=== PATIENT | male | born 1960 | race African-American/Black ===

== ENCOUNTER 2017-01-11 02:10 | Emergency (ER) | payer OTHER ==
[~2017-01-11] VITALS: Ht 167.6 cm; Wt 111.0 kg
[~2017-01-11 02:10] MED LIST: 1-ME1LIQ PO; BACL10TA PO; ESCI10TA PO; GABA300C3 PO; HYDR-2768 PO; MILKSUS5 PO; NORC7.5T PO; Z.0.WALKERFRONT
[2017-01-11 02:11] VITALS: BP 191/112; PULSE 73; RESP 18; TEMP 97.9; O2SAT 98
[2017-01-11] MEDS ORDERED: HYDR25TA5 PO (02:23)
[2017-01-11] MEDS ORDERED: CYCL1TAB29 PO (02:23)
[2017-01-11] MEDS ORDERED: HYDR-3580 PO (02:23)
[2017-01-11 02:27] VITALS: BP 221/98; PULSE 70; RESP 25; O2SAT 100
[2017-01-11] MEDS ORDERED: ONDANSETRON HCL 4 MG/2 ML VIAL IVP ONE (03:15)
[2017-01-11] MEDS ORDERED: SODIUM CHLORIDE 0.9% FLUSH 5 ML FLUSH IVF PRN (03:15)
[2017-01-11] MEDS ORDERED: MORPHINE SULFATE 8 MG/ML INJ IV PUSH ONE (03:15)
[2017-01-11 03:37] LABS: AUTOMATED NEUTROPHIL # 4.9 TH/MM3 (1.8-7.7); BASOPHIL % 0.5 % (0.0-2.0); EOSINOPHIL # 0.2 TH/MM3 (0-0.4); EOSINOPHIL % 2.4 % (0.0-4.0); HEMATOCRIT 45.4 % (39.0-51.0); HEMO FLAGS DIFF FINAL; LYMPH % 35.3 % (9.0-44.0); LYMPHOCYTE # 3.3 TH/MM3 (1.0-4.8); MEAN CELL VOLUME 88.2 FL (80.0-100.0); MEAN CORPUSCULAR HEMOGLOBIN 29.6 PG (27.0-34.0); MEAN CORPUSCULAR HGB CONC 33.6 % (32.0-36.0); MONO % 10.1 % (0.0-8.0); NEUT % 51.7 % (16.0-70.0); PLATELET COUNT 258 TH/MM3 (150-450); RED BLOOD COUNT 5.15 MIL/MM3 (4.50-5.90); RED CELL DISTRIBUTION WIDTH 13.4 % (11.6-17.2); WHITE BLOOD COUNT 9.5 TH/MM3 (4.0-11.0)
[2017-01-11 04:10] LABS: ALKALINE PHOSPHATASE 63 U/L (45-117); ALT (GPT) 43 U/L (12-78); TOTAL BILIRUBIN ADULT 0.7 MG/DL (0.2-1.0)
[2017-01-11 04:20] LABS: ANION GAP 6 MEQ/L (5-15); AST (GOT) 44 U/L (15-37); BICARBONATE 30.7 MEQ/L (21.0-32.0); BLOOD UREA NITROGEN 7 MG/DL (7-18); CHLORIDE 103 MEQ/L (98-107); GLOMERULAR FILTRATION RATE 86 ML/MIN (>89); SODIUM (NA) 140 MEQ/L (136-145)
[2017-01-11 04:30] LABS: POTASSIUM 5.3 MEQ/L (3.5-5.1)
[2017-01-11 06:15] VITALS: BP 140/71; PULSE 59; RESP 18; TEMP 98.4; O2SAT 100
--- NOTE | 2017-01-11 06:15 | PD ---
HPI Chief Complaint: GI Complaint Time Seen by Provider: 03:04 Travel History International Travel<30 days: No Contact w/Intl Traveler<30days: No Traveled to known affect area: No History of Present Illness HPI 56-year-old male arrives complaining of right abdomen pain. It started is been severe. It comes and goes. It radiates to the back. He's had nausea and yellow emesis. He reports it started while he was asleep. He's had no diarrhea. No fever. Patient has history of hypertension and has been compliant with hydrochlorothiazide. Pain is worse with palpation. 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) Cancer: No Cardiovascular Problems: Yes ([place]) High Cholesterol: Yes Chemotherapy: No Chest Pain: Yes Congestive Heart Failure: No COPD: No Cerebrovascular Accident: No Diabetes: No Diminished Hearing: No Endocrine: No Gastrointestinal Disorders: Yes (CHRONIC CONSTIPATION, PANCREATITIS) GERD: Yes Genitourinary: Yes Hepatitis: No Hiatal Hernia: No Hypertension: Yes Immune Disorder: No Kidney Stones: Yes (THIS ADMISSION) Musculoskeletal: Yes Neurologic: Yes Psychiatric: Yes Reproductive: No Respiratory: Yes Migraines: No Myocardial Infarction: Yes (2003) Pancreatitis: Yes (RESOLVED AFTER STOPPED DRINKING 1997) Radiation Therapy: No Renal Failure: No Seizures: No Sickle Cell Disease: No Sleep Apnea: No Thyroid Disease: No Ulcer: Yes Tetanus Vaccination: < 5 Years Influenza Vaccination: No Past Surgical History Abdominal Surgery: No AICD: No Arteriovenous Shunt: No Body Medical Devices: INGUINAL HERNIA MESH Cardiac Surgery: No Ear Surgery: No Endocrine Surgery: No Eye Surgery: No Genitourinary Surgery: Yes (LEFT INGUINAL HERNIA REPAIR, PILONIDAL CYST REMOVAL ) Gynecologic Surgery: No Insulin Pump: No Joint Replacement: No Oral Surgery: No Pacemaker: No Thoracic Surgery: No Other Surgery: Yes (laminectomy ) Social History Alcohol Use: Yes (LAST INTAKE 2002/USE TO DRINK WEEKENDS/STARTED AGE 3) Tobacco Use: No (QUIT 2002 USE TO SMOKE 1 PPD/STARTED AGE 3) Substance Use: No Allergies-Medications (Allergen,Severity, Reaction): Coded Allergies: Nubain (Verified Allergy, Severe, SWELLING ABD PAIN AND VOMITING,TONGUE SWELLING, 01/11/17) Shrimp (Verified Allergy, Severe, VOMITING, 01/11/17) Stadol (Verified Allergy, Severe, VOMITING, 01/11/17) Talwin (Verified Allergy, Severe, ABD PAIN AND VOMITING, 01/11/17) Toradol (Verified Allergy, Severe, STOMACH PAIN., 01/11/17) Reported Meds & Prescriptions Reported Meds & Active Scripts Active Zofran Odt (Ondansetron Odt) 4 Mg Tab 4 Mg SL Q8HR PRN Flomax (Tamsulosin HCl) 0.4 Mg Cap 0.4 Mg PO HS Oxycodone (Oxycodone HCl) 5 Mg Tab 5 Mg PO Q8H PRN Reported Hydrochlorothiazide 25 Mg Tab 25 Mg PO DAILY Hydrocodone-Acetaminophen 7.5-325 mg Tab 1-2 Tab PO Q6 PRN Flexeril (Cyclobenzaprine HCl) 10 Mg Tab 10 Mg PO BID Review of Systems Except as stated in HPI: all other systems reviewed are Neg General / Constitutional: No: Fever Gastrointestinal: Positive: Nausea, Vomiting, Abdominal Pain, No: Diarrhea Physical Exam Narrative GENERAL: 56-year-old male pleasant well-nourished well-developed SKIN: Warm and dry. HEAD: Atraumatic. Normocephalic. EYES: Pupils equal and round. No scleral icterus. No injection or drainage. ENT: No nasal bleeding or discharge. Mucous membranes pink and moist. NECK: Trachea midline. No JVD. CARDIOVASCULAR: Regular rate and rhythm. No murmur appreciated. RESPIRATORY: No accessory muscle use. Clear to auscultation. Breath sounds equal bilaterally. GASTROINTESTINAL: Tenderness to palpation right upper quadrant. Soft otherwise. MUSCULOSKELETAL: No obvious deformities. No clubbing. No cyanosis. No edema. NEUROLOGICAL: Awake and alert. No obvious cranial nerve deficits. Motor grossly within normal limits. Normal speech. PSYCHIATRIC: Appropriate mood and affect; insight and judgment normal. Data Data Last Documented VS Vital Signs Date Time Temp Pulse Resp B/P Pulse Ox O2 Delivery O2 Flow Rate FiO2 01/11/17 06:15 100 Room Air 01/11/17 06:15 98.4 59 18 140/71 Vital signs reviewed and the repeat blood pressure is 140/71 6:15 AM Orders Complete Blood Count With Diff (01/11/17 03:12) Comprehensive Metabolic Panel (01/11/17 03:12) Lipase (01/11/17 03:12) Iv Access Insert/Monitor (01/11/17 03:12) Ecg Monitoring (01/11/17 03:12) Oximetry (01/11/17 03:12) Ondansetron Inj (Zofran Inj) (01/11/17 03:15) Sodium Chloride 0.9% Flush (Ns Flush) (01/11/17 03:15) Morphine Inj (Morphine Inj) (01/11/17 03:15) Ct Abd/Pel W/O Iv Contrast (01/11/17 ) Urinalysis - C+S If Indicated (01/11/17 06:44) Labs Laboratory Tests Test 01/11/17 01/11/17 03:00 06:30 White Blood Count 9.5 TH/MM3 Red Blood Count 5.15 MIL/MM3 Hemoglobin 15.3 GM/DL Hematocrit 45.4 % Mean Corpuscular Volume 88.2 FL Mean Corpuscular Hemoglobin 29.6 PG Mean Corpuscular Hemoglobin 33.6 % Concent Red Cell Distribution Width 13.4 % Platelet Count 258 TH/MM3 Mean Platelet Volume 8.7 FL Neutrophils (%) (Auto) 51.7 % Lymphocytes (%) (Auto) 35.3 % Monocytes (%) (Auto) 10.1 % Eosinophils (%) (Auto) 2.4 % Basophils (%) (Auto) 0.5 % Neutrophils # (Auto) 4.9 TH/MM3 Lymphocytes # (Auto) 3.3 TH/MM3 Monocytes # (Auto) 1.0 TH/MM3 Eosinophils # (Auto) 0.2 TH/MM3 Basophils # (Auto) 0.0 TH/MM3 CBC Comment DIFF FINAL Differential Comment Sodium Level 140 MEQ/L Potassium Level 5.3 MEQ/L Chloride Level 103 MEQ/L Carbon Dioxide Level 30.7 MEQ/L Anion Gap 6 MEQ/L Blood Urea Nitrogen 7 MG/DL Creatinine 1.07 MG/DL Estimat Glomerular Filtration 86 ML/MIN Rate Random Glucose 104 MG/DL Calcium Level 8.4 MG/DL Total Bilirubin 0.7 MG/DL Aspartate Amino Transf 44 U/L (AST/SGOT) Alanine Aminotransferase 43 U/L (ALT/SGPT) Alkaline Phosphatase 63 U/L Total Protein 7.6 GM/DL Albumin 3.7 GM/DL Lipase 171 U/L Urine Color LIGHT-YELLOW Urine Turbidity CLEAR Urine pH 7.0 Urine Specific [place] 1.005 Urine Protein NEG mg/dL Urine Glucose (UA) NEG mg/dL Urine Ketones NEG mg/dL Urine Occult Blood NEG Urine Nitrite NEG Urine Bilirubin NEG Urine Urobilinogen LESS THAN 2.0 MG/DL Urine Leukocyte Esterase NEG Urine RBC 1 /hpf Urine WBC LESS THAN 1 /hpf Urine Squamous Epithelial <1 /hpf Cells Microscopic Urinalysis Comment CULT NOT INDICATED MDM Medical Decision Making Medical Screen Exam Complete: Yes Emergency Medical Condition: Yes Medical Record Reviewed: Yes Differential Diagnosis Constipation, Gastritis, Acute Cholecystitis, Biliary Colic, Pancreatitis, CROW , Hepatitis, Bowel Obstruction, Cystitis, Mesenteric Ischemia, AAA, Appendicitis , Renal Stone/Hydronephrosis, GERD, perforated viscous Narrative Course CBC & BMP Diagram 01/11/17 03:00 LFTs and lipase normal UA: No UTI Last Impressions Abdomen/Pelvis CT 01/11/17 0000 Signed Impressions: Service Date/Time: Friday, January 11, 2017 05:35 - CONCLUSION: 1. 4 mm calculus in the distal right ureter with right-sided obstructive uropathy mild hydronephrosis. Multiple additional nonobstructing calculi in the right kidney. Jos Doss MD Urinalysis shows no hematuria Oxycodone Zofran Tamiflu. Return precautions discussed. Follow up with urology. Diagnosis Primary Impression: Nausea & vomiting Qualified Code: R11.2 - Nausea and vomiting, intractability of vomiting not specified, unspecified vomiting type Additional Impressions: Hydronephrosis Qualified Code: N13.30 - Hydronephrosis, unspecified hydronephrosis type Ureteric calculus Referrals: Cody Bello MD 2 days Additional Instructions: You have a choice when it comes to health care, and we are glad that you chose [facility]. Hopefully, we have met your expectations on today's visit. You are welcome to return to [facility] at any time, as we are committed to meeting the health care needs of our community. Med/Other Pt SpecificInfo: Prescription(s) given Scripts Ondansetron Odt (Zofran Odt)4 Mg Tab4 Mg SL Q8HR PRN (Nausea/Vomiting) #6 TAB Ref 0 Prov:Hao aVllecillo MD 01/11/17 Tamsulosin (Flomax)0.4 Mg Cap0.4 Mg PO HS #4 CAP Ref 0 Prov:Hao Vallecillo MD 01/11/17 Oxycodone 5 Mg Tab5 Mg PO Q8H PRN (PAIN SCALE 6 TO 10) #20 TAB Ref 0 Prov:Hao Vallecillo MD 01/11/17 Disposition: 01 DISCHARGE HOME Condition: Stable Hao Vallecillo MD Jan 11, 2017 06:15
--- NOTE | 2017-01-11 06:32 | RADRPT ---
EXAM DATE/TIME: 01/11/2017 05:35 [facility] COMPARISON: No previous studies available for comparison. INDICATIONS : Abdominal pain. ORAL CONTRAST: No oral contrast ingested. RADIATION DOSE: 11.95 CTDIvol (mGy) MEDICAL HISTORY : Pancreatitis. Hypertension. Hernia, inguinal. SURGICAL HISTORY : Inguinal hernia repair. ENCOUNTER: Initial ACUITY: 1 day PAIN SCALE: 5/10 LOCATION: abdomen TECHNIQUE: Volumetric scanning of the abdomen and pelvis was performed. Using automated exposure control and ad justment of the mA and/or kV according to patient size, radiation dose was kept as low as reasonably achievable to obtain optimal diagnostic quality images. FINDINGS: There is a mild right-sided obstructive uropathy with minimal dilatation of the right renal collectin g system. There is dilatation of the right ureter into the pelvis where there is a 4 mm calculus in t he distal right ureter above the bladder. No bladder calculi. Numerous additional nonobstructing calc mark remain in the right kidney ranging in size from 1-4 mm. No left-sided renal calculi or obstructiv e uropathy. Tiny bilateral renal cysts. No acute findings in the liver, spleen, adrenals or pancreas. No calcified gallstones. Mild fatty gael er. No free fluid. No bowel obstruction. No adenopathy. No acute bony abnormalities. CONCLUSION: 1. 4 mm calculus in the distal right ureter with right-sided obstructive uropathy mild hydronephrosis . Multiple additional nonobstructing calculi in the right kidney. Jos Doss MD on January 11, 2017 at 6:25 Board Certified Radiologist. This report was verified electronically.
[2017-01-11 07:06] LABS: BLOOD, URINE NEG (NEG); GLUCOSE,URINE NEG (NEG); KETONE, URINE NEG (NEG); NITRITE,URINE NEG (NEG); SQUAMOUS EPITHELIAL CELL URINE <1 /hpf (0-5); URINE COLOR LIGHT-YELLOW (YELLW/STRAW)
[2017-01-11 07:12] LABS: COMMENT (UR) CULT NOT INDICATED; CULTURE IF INDICATED CULT NOT INDICATED
[2017-01-11] MEDS ORDERED: TAMS5CAP PO (07:21)
[2017-01-11] MEDS ORDERED: ZOFR4TAB3 SL (07:21)
[2017-01-11] MEDS ORDERED: OXYC-392 PO (07:21)
== END 2017-01-11 07:55 | disposition home or self-care (01) ==
LOC: NEPC 02:10
DX: N13.2 Hydronephrosis with renal and ureteral calculous obstruction (principal); R11.2 Nausea with vomiting, unspecified
CPT/HCPCS: 74176; 80053; 81001; 83690; 85025; 96374; 96375; 99284; J2270; J2405

== ENCOUNTER 2017-01-17 12:43 | Emergency (ER) | payer OTHER ==
[~2017-01-17] VITALS: Ht 167.6 cm; Wt 110.0 kg
[~2017-01-17 12:43] MED LIST changes: -1-ME1LIQ PO; -BACL10TA PO; +CYCL1TAB29 PO; -ESCI10TA PO; -GABA300C3 PO; -HYDR-2768 PO; +HYDR-3580 PO; +HYDR25TA5 PO; -MILKSUS5 PO; -NORC7.5T PO; +OXYC-392 PO; +TAMS5CAP PO; -Z.0.WALKERFRONT; +ZOFR4TAB3 SL
[2017-01-17 12:45] VITALS: BP 178/106; PULSE 100; RESP 15; TEMP 98; O2SAT 95
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
[2017-01-17] MEDS ORDERED: METHOCARBAMOL 500 MG TAB PO ONE (13:45)
[2017-01-17] MEDS ORDERED: IBUPROFEN 800 MG TAB PO ONE (13:45)
[2017-01-17 14:59] VITALS: BP 156/94; PULSE 76; RESP 18; O2SAT 97
--- NOTE | 2017-01-17 15:07 | RADRPT ---
EXAM DATE/TIME: 01/17/2017 14:08 [facility] COMPARISON: No previous studies available for comparison. INDICATIONS : Lower back pain; history of laminectomy. RADIATION DOSE: 35.86 CTDIvol (mGy) MEDICAL HISTORY : Cardiovascular disease. Hypertension. Pancreatitis. SURGICAL HISTORY : None. ENCOUNTER: Initial ACUITY: 1 day PAIN SCALE: 4/10 LOCATION: Lower back TECHNIQUE: Volumetric scanning of the lumbar spine was performed. Multiplanar reconstructions in the sagittal, coronal and oblique axial planes were performed. Using automated exposure control and adjustment of the mA and/or kV according to patient size, radiation dose was kept as low as reasonably achievable t o obtain optimal diagnostic quality images. FINDINGS: Sagittal and coronal reconstructions show mild degenerative disease at L3-4 with some loss of disc he ight. Otherwise, vertebral body and disc heights are maintained throughout. There is no fracture or l isthesis. Spinal canal appears to be adequate throughout. Also noted are nonobstructing subcentimeter stones in the right renal collecting system. There is a 3 mm calculus in the right ureter in the lev el of the deep pelvis which does not appear to result in significant hydroureter or hydronephrosis. T here may also be a lipoma the filum terminalis. Detailed axial images as follows: T12-L1: The thecal sac has a normal diameter. No evidence of disc bulge or protrusion. The neural foramina are patent bilaterally. L1-L2: The thecal sac has a normal diameter. No evidence of disc bulge or protrusion. The neural foramina are patent bilaterally. L2-L3: The thecal sac has a normal diameter. No evidence of disc bulge or protrusion. The neural foramina are patent bilaterally. L3-L4: The thecal sac has a normal diameter. No evidence of disc bulge or protrusion. The neural foramina are patent bilaterally. L4-L5: The thecal sac has a normal diameter. No evidence of disc bulge or protrusion. The neural foramina are patent bilaterally. L5-S1: The thecal sac has a normal diameter. No evidence of disc bulge or protrusion. The neural foramina are patent bilaterally. CONCLUSION: 1. Minimal degenerative disease at L3-4 similar loss of disc height. Vertebral body and disc heights are otherwise maintained without fracture. 2. Multiple nonobstructing subcentimeter calculi in the right renal collecting system. 3 mm calculus in the distal right ureter. 3. 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 Deuce Jo MD on January 17, 2017 at 14:55 Board Certified Radiologist. This report was verified electronically.
[2017-01-17] MEDS ORDERED: ROBA500T PO ×2 (15:42→15:50)
== END 2017-01-17 15:54 | disposition home or self-care (01) ==
LOC: NETRI 12:43
DX: M54.5 Low back pain (principal); N20.1 Calculus of ureter; N20.0 Calculus of kidney; I10 Essential (primary) hypertension; E78.00 Pure hypercholesterolemia, unspecified; Z79.01 Long term (current) use of anticoagulants; Z87.39 Personal history of other diseases of the musculoskeletal system and connective tissue; Z86.59 Personal history of other mental and behavioral disorders; Z86.79 Personal history of other diseases of the circulatory system; Z87.19 Personal history of other diseases of the digestive system; Z87.448 Personal history of other diseases of urinary system; Z86.69 Personal history of other diseases of the nervous system and sense organs; Z87.891 Personal history of nicotine dependence
CPT/HCPCS: 72131

== ENCOUNTER 2017-11-03 16:52 | Observation (INO) | payer OTHER ==
[~2017-11-03 16:52] MED LIST changes: +CYCL10TA PO; -CYCL1TAB29 PO; +ROBA500T PO
[2017-11-03 16:53] VITALS: BP 160/126; PULSE 124; RESP 22; TEMP 100.4; O2SAT 97
[2017-11-03] MEDS ORDERED: IOHEXOL 350 MG/ML 10 ML VIAL (for RAD DIAG) IVCONTRAST ONE (16:53)
[2017-11-03] MEDS ORDERED: SODIUM CHLOR 0.9% 1000 ML INJ 1,000 ML IV SCH (17:40)
--- NOTE | 2017-11-03 17:44 | PD ---
HPI Chief Complaint: Cold / Flu Symptoms Time Seen by Provider: 17:39 Travel History International Travel<30 days: No Contact w/Intl Traveler<30days: No Traveled to known affect area: No History of Present Illness HPI 57-year-old male here for evaluation of generalized malaise, general body aches , cough, shortness of breath. Symptoms started yesterday. He is having subjective fevers and chills. Cough is nonproductive. He also complains of a sore throat. No abdominal pain, nausea, or vomiting. 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) Cancer: No Cardiovascular Problems: Yes (NE) High Cholesterol: Yes Chemotherapy: No Chest Pain: Yes Congestive Heart Failure: No COPD: No Cerebrovascular Accident: No Diabetes: No Diminished Hearing: No Endocrine: No Gastrointestinal Disorders: Yes (CHRONIC CONSTIPATION, PANCREATITIS) GERD: Yes Genitourinary: Yes Headaches: No Hepatitis: No Hiatal Hernia: No Heparin Induced Thrombocytopen: No Hypertension: Yes Immune Disorder: No Implanted Vascular Access Dvce: No Kidney Stones: Yes (THIS ADMISSION) Musculoskeletal: Yes Neurologic: Yes Psychiatric: Yes Reproductive: No Respiratory: Yes Migraines: No Myocardial Infarction: Yes (2003) Pancreatitis: Yes (RESOLVED AFTER STOPPED DRINKING 1997) Radiation Therapy: No Renal Failure: No Seizures: No Sickle Cell Disease: No Sleep Apnea: No Thyroid Disease: No Ulcer: Yes Past Surgical History Abdominal Surgery: No AICD: No Arteriovenous Shunt: No Body Medical Devices: INGUINAL HERNIA MESH Cardiac Surgery: No Ear Surgery: No Endocrine Surgery: No Eye Surgery: No Genitourinary Surgery: Yes (LEFT INGUINAL HERNIA REPAIR, PILONIDAL CYST REMOVAL ) Gynecologic Surgery: No Insulin Pump: No Joint Replacement: No Neurologic Surgery: No Oral Surgery: No Pacemaker: No Thoracic Surgery: No Other Surgery: Yes (laminectomy ) Social History Alcohol Use: Yes (LAST INTAKE 2002/USE TO DRINK WEEKENDS/STARTED AGE 3) Tobacco Use: No (QUIT 2002 USE TO SMOKE 1 PPD/STARTED AGE 3) Substance Use: No Allergies-Medications (Allergen,Severity, Reaction): Coded Allergies: butorphanol (Unverified Allergy, Severe, VOMITING, 06/10/17) ketorolac (Unverified Allergy, Severe, STOMACH PAIN., 06/10/17) nalbuphine (Unverified Allergy, Severe, SWELLING ABD PAIN AND VOMITING, TONGUE SWELLING, 06/10/17) pentazocine (Unverified Allergy, Severe, ABD PAIN AND VOMITING, 06/10/17) shrimp (Unverified Allergy, Severe, VOMITING, 06/10/17) Reported Meds & Prescriptions Reported Meds & Active Scripts Active Robaxin (Methocarbamol) 500 Mg Tab 500 Mg PO QID PRN Zofran Odt (Ondansetron Odt) 4 Mg Tab 4 Mg SL Q8HR PRN Flomax (Tamsulosin HCl) 0.4 Mg Cap 0.4 Mg PO HS Oxycodone (Oxycodone HCl) 5 Mg Tab 5 Mg PO Q8H PRN Reported Hydrochlorothiazide 25 Mg Tab 25 Mg PO DAILY Hydrocodone-Acetaminophen 7.5-325 mg Tab 1-2 Tab PO Q6 PRN Flexeril (Cyclobenzaprine HCl) 10 Mg Tab 10 Mg PO BID Review of Systems Except as stated in HPI: all other systems reviewed are Neg Physical Exam Narrative GENERAL: Well-developed, well-nourished, no apparent distress. SKIN: Focused skin assessment warm/dry. No rashes. HEAD: Atraumatic. Normocephalic. EYES: Pupils equal and round. No scleral icterus. No injection or drainage. ENT: Mucous membranes pink and moist. Normal pharynx. No drooling or stridor. NECK: Trachea midline. No JVD. No nuchal rigidity. CARDIOVASCULAR: Regular rate and rhythm. RESPIRATORY: No accessory muscle use. Clear to auscultation. Breath sounds equal bilaterally. GASTROINTESTINAL: Abdomen soft, non-tender, nondistended. MUSCULOSKELETAL: No obvious deformities. No clubbing. No cyanosis. No edema. NEUROLOGICAL: Awake and alert. No obvious cranial nerve deficits. Motor grossly within normal limits. Normal speech. PSYCHIATRIC: Appropriate mood and affect; insight and judgment normal. Data Data Last Documented VS Vital Signs Date Time Temp Pulse Resp B/P (MAP) Pulse Ox O2 Delivery O2 Flow Rate FiO2 11/03/17 19:12 113 16 150/70 (96) 96 Room Air 11/03/17 16:53 100.4 Orders Orders Complete Blood Count With Diff (11/03/17 17:20) Basic Metabolic Panel (Bmp) (11/03/17 17:20) Chest, Pa & Lat (11/03/17 17:20) Group A Rapid Strep Screen (11/03/17 17:20) Influenzae A/B Antigen (11/03/17 17:20) Iv Access Insert/Monitor (11/03/17 17:40) Ecg Monitoring (11/03/17 17:40) Oximetry (11/03/17 17:40) Sodium Chlor 0.9% 1000 Ml Inj (Ns 1000 M (11/03/17 17:40) Sodium Chloride 0.9% Flush (Ns Flush) (11/03/17 17:45) Acetaminophen (Tylenol) (11/03/17 17:45) Guaifen-Cod 200-20 Mg/10ml Liq (Robituss (11/03/17 19:15) Strep Culture (Group A) (11/03/17 19:05) Ct Abd/Pel W Iv Contrast(Rout) (11/03/17 ) Ct Pulmonary Angiogram (11/03/17 ) Hepatic Functional Panel (11/03/17 20:02) Lipase (11/03/17 20:02) Sodium Chlor 0.9% 1000 Ml Inj (Ns 1000 M (11/03/17 20:15) Iohexol 350 Inj (Omnipaque 350 Inj) (11/03/17 16:53) Guaifen-Cod 200-20 Mg/10ml Liq (Robituss (11/03/17 21:45) Labs Laboratory Tests Test 11/03/17 19:05 White Blood Count 8.7 TH/MM3 Red Blood Count 4.69 MIL/MM3 Hemoglobin 14.3 GM/DL Hematocrit 41.9 % Mean Corpuscular Volume 89.4 FL Mean Corpuscular Hemoglobin 30.6 PG Mean Corpuscular Hemoglobin Concent 34.2 % Red Cell Distribution Width 13.8 % Platelet Count 224 TH/MM3 Mean Platelet Volume 8.2 FL Neutrophils (%) (Auto) 77.9 % Lymphocytes (%) (Auto) 9.8 % Monocytes (%) (Auto) 9.8 % Eosinophils (%) (Auto) 2.1 % Basophils (%) (Auto) 0.4 % Neutrophils # (Auto) 6.8 TH/MM3 Lymphocytes # (Auto) 0.9 TH/MM3 Monocytes # (Auto) 0.9 TH/MM3 Eosinophils # (Auto) 0.2 TH/MM3 Basophils # (Auto) 0.0 TH/MM3 CBC Comment DIFF FINAL Differential Comment Blood Urea Nitrogen 10 MG/DL Creatinine 1.17 MG/DL Random Glucose 97 MG/DL Calcium Level 8.1 MG/DL Sodium Level 138 MEQ/L Potassium Level 3.8 MEQ/L Chloride Level 105 MEQ/L Carbon Dioxide Level 28.4 MEQ/L Anion Gap 5 MEQ/L Estimat Glomerular Filtration Rate 77 ML/MIN Total Bilirubin 0.7 MG/DL Direct Bilirubin 0.2 MG/DL Indirect Bilirubin 0.5 MG/DL Aspartate Amino Transf (AST/SGOT) 28 U/L Alanine Aminotransferase (ALT/SGPT) 41 U/L Alkaline Phosphatase 61 U/L Total Protein 6.8 GM/DL Albumin 3.4 GM/DL Lipase 146 U/L [facility] Medical Decision Making Medical Screen Exam Complete: Yes Emergency Medical Condition: Yes Differential Diagnosis Influenza, URI, pharyngitis, strep pharyngitis, pneumonia, bronchitis Narrative Course Initial vital signs show heart rate 124, blood pressure 160/126, pulse ox 97% on room air, tympanic temp of 100.4F. CBC is essentially unremarkable except for slight neutrophilia with 77.9% neutrophils. BMP is unremarkable. Influenza is negative. Strep is negative. Chest x-ray shows no acute disease. The patient was given a liter of normal saline IV and oral Tylenol and his heart rate has improved to 115 bpm. He now tells me that he has abdominal pain and points to his mid and epigastric area where he has pain. There is mild tenderness without peritoneal signs. CT abdomen pelvis will be ordered as well as a CT pulmonary angiogram. CT pulmonary angiogram: CONCLUSION: Normal examination. CT abdomen pelvis: CONCLUSION: Normal examination except for few benign renal cysts. A few right sided renal calcifications. No evidence of hydronephrosis or obstruction. Patient remains tachycardic with a heart rate of 115, sinus, despite receiving 2 L of normal saline IV. He was made aware of all findings. He has had a persistent cough, however it is been nonproductive. He is requesting another dose of Robitussin. Given persistent tachycardia, patient be admitted for overnight observation. Case discussed with [facility] hospitalist Dr. Ackerman who will admit the patient to his service. The patient is amenable with this plan. Diagnosis Primary Impression: URI (upper respiratory infection) Qualified Codes: J06.9 - Acute upper respiratory infection, unspecified Additional Impression: Sinus tachycardia Admitting Information Admitting Physician Requests: Observation Sin Loya MD Nov 03, 2017 17:44
[2017-11-03] MEDS ORDERED: ACETAMINOPHEN 325 MG TAB PO ONE (17:45)
[2017-11-03] MEDS ORDERED: SODIUM CHLORIDE 0.9% FLUSH 10 ML FLUSH IV FLUSH PRN (17:45)
--- NOTE | 2017-11-03 17:54 | RADRPT ---
EXAM DATE/TIME: 11/03/2017 17:48 [facility] COMPARISON: No previous studies available for comparison. INDICATIONS : Short of breath and body aches. MEDICAL HISTORY : None. SURGICAL HISTORY : None. ENCOUNTER: Initial ACUITY: 2 days PAIN SCORE: 10/10 LOCATION: Bilateral chest FINDINGS: PA and lateral views of the chest demonstrate the lungs to be symmetrically aerated without evidence of mass, infiltrate or effusion. The cardiomediastinal contours are unremarkable. Osseous structure s are intact. CONCLUSION: 1. No acute cardiopulmonary disease. Oscar Edward MD on November 03, 2017 at 17:52 Board Certified Radiologist. This report was verified electronically.
[2017-11-03 18:11] VITALS: O2SAT 98
[2017-11-03 19:12] VITALS: BP 150/70; PULSE 113; RESP 16; O2SAT 96
[2017-11-03] MEDS ORDERED: guaiFENesin/CODEINE SYRUP 200 MG/20 MG/10 ML CUP PO ONE ×2 (19:15→21:45)
[2017-11-03 19:54] LABS: AUTOMATED NEUTROPHIL # 6.8 TH/MM3 (1.8-7.7); BASOPHIL % 0.4 % (0.0-2.0); EOSINOPHIL # 0.2 TH/MM3 (0-0.4); EOSINOPHIL % 2.1 % (0.0-4.0); HEMATOCRIT 41.9 % (39.0-51.0); HEMOGLOBIN 14.3 GM/DL (13.0-17.0); LYMPH % 9.8 % (9.0-44.0); LYMPHOCYTE # 0.9 TH/MM3 (1.0-4.8); MEAN CELL VOLUME 89.4 FL (80.0-100.0); MEAN CORPUSCULAR HEMOGLOBIN 30.6 PG (27.0-34.0); MEAN CORPUSCULAR HGB CONC 34.2 % (32.0-36.0); MEAN PLATELET VOLUME 8.2 FL (7.0-11.0); MONO % 9.8 % (0.0-8.0); MONOCYTE # 0.9 TH/MM3 (0-0.9); NEUT % 77.9 % (16.0-70.0); PLATELET COUNT 224 TH/MM3 (150-450); RED BLOOD COUNT 4.69 MIL/MM3 (4.50-5.90); RED CELL DISTRIBUTION WIDTH 13.8 % (11.6-17.2); WHITE BLOOD COUNT 8.7 TH/MM3 (4.0-11.0)
[2017-11-03 19:59] LABS: BICARBONATE 28.4 MEQ/L (21.0-32.0); CALCIUM 8.1 MG/DL (8.5-10.1); CREATININE 1.17 MG/DL (0.60-1.30)
[2017-11-03] MEDS ORDERED: SODIUM CHLOR 0.9% 1000 ML INJ 1,000 ML IV ONE (20:15)
[2017-11-03 20:27] LABS: ALBUMIN 3.4 GM/DL (3.4-5.0); DIRECT BILIRUBIN ADULT 0.2 MG/DL (0.0-0.2)
[2017-11-03 20:30] LABS: INDIRECT BILIRUBIN 0.5 MG/DL (0.0-0.8); TOTAL BILIRUBIN ADULT 0.7 MG/DL (0.2-1.0); TOTAL PROTEIN 6.8 GM/DL (6.4-8.2)
--- NOTE | 2017-11-03 21:19 | RADRPT ---
EXAM DATE/TIME: 11/03/2017 20:57 [facility] COMPARISON: No previous studies available for comparison. INDICATIONS : Body aches, cough, sore throat and chest congestion. IV CONTRAST: 98 cc Omnipaque 350 (iohexol) IV ; Cumulative dose for multiple exams. RADIATION DOSE: 23.32 CTDIvol (mGy) MEDICAL HISTORY : Cardiovascular disease. Hypertension. Pancreatitis.COPD Renal stones SURGICAL HISTORY : Inguinal hernia repair. Discectomy, lumbar. ENCOUNTER: Initial ACUITY: 1 day PAIN SCALE: 5/10 LOCATION: chest TECHNIQUE: Volumetric scanning of the chest was performed using a pulmonary embolism protocol MIP images were re constructed. Using automated exposure control and adjustment of the mA and/or kV according to patien t size, radiation dose was kept as low as reasonably achievable to obtain optimal diagnostic quality images. DICOM format image data is available electronically for review and comparison. Follow-up recommendations for detected pulmonary nodules are based at a minimum on nodule size and pa tient risk factors according to Fleischner Society Guidelines. FINDINGS: PULMONARY ARTERIES: No filling defects are seen in the pulmonary arteries through the segmental level. LUNGS: There is no consolidation or pneumothorax . No concerning pulmonary nodule is visualized. PLEURAE: There is no pleural thickening or pleural effusion. MEDIASTINUM: There is good visualization of the great vessels of the middle mediastinum. No evidence of mediastin al or hilar adenopathy/mass. MUSCULOSKELETAL: Within normal limits for patient age. MISCELLANEOUS: The visualized upper abdominal organs demonstrate no acute abnormality. CONCLUSION: Normal examination. Anibal Link MD on November 03, 2017 at 21:16 Board Certified Radiologist. This report was verified electronically.
--- NOTE | 2017-11-03 21:27 | RADRPT ---
EXAM DATE/TIME: 11/03/2017 20:57 [facility] COMPARISON: CT ABDOMEN & PELVIS W CONTRAST, July 25, 2016, 18:15. INDICATIONS : Body aches, cough, sore throat and chest congestion. IV CONTRAST: 98 cc Omnipaque 350 (iohexol) IV ORAL CONTRAST: No oral contrast ingested. RADIATION DOSE: 22.55 CTDIvol (mGy) ; Patient body habitus MEDICAL HISTORY : Cardiovascular disease. Hypertension. Pancreatitis.COPD Renal stones SURGICAL HISTORY : Inguinal hernia repair. Discectomy, lumbar. ENCOUNTER: Initial ACUITY: 1 day PAIN SCALE: 5/10 LOCATION: abdomen TECHNIQUE: Volumetric scanning of the abdomen and pelvis was performed. Using automated exposure control and ad justment of the mA and/or kV according to patient size, radiation dose was kept as low as reasonably achievable to obtain optimal diagnostic quality images. DICOM format image data is available electro nically for review and comparison. FINDINGS: LOWER LUNGS: The visualized lower lungs are clear. LIVER: Homogeneously lower density without lesion. There is no dilation of the biliary tree. No calcified gallstones. SPLEEN: Normal size without lesion. PANCREAS: Within normal limits. KIDNEYS: Normal in size and shape. There is no hydronephrosis. There numerous cysts are present and a few rickie al calcifications ADRENAL GLANDS: Within normal limits. VASCULAR: There is no aortic aneurysm. BOWEL/MESENTERY: The stomach, small bowel, and colon demonstrate no acute abnormality. There is no free intraperitone al air or fluid. ABDOMINAL WALL: Within normal limits. RETROPERITONEUM: There is no lymphadenopathy. BLADDER: No wall thickening or mass. REPRODUCTIVE: Within normal limits. INGUINAL: There is no lymphadenopathy or hernia. MUSCULOSKELETAL: Within normal limits for patient age. CONCLUSION: Normal examination except for few benign renal cysts. A few right sided renal calcifications. No evid ence of hydronephrosis or obstruction. Anibal Link MD on November 03, 2017 at 21:22 Board Certified Radiologist. This report was verified electronically.
[2017-11-03 22:18] VITALS: BP 167/89; PULSE 112; RESP 20; O2SAT 99
[2017-11-03] MEDS ORDERED: ONDANSETRON HCL 4 MG/2 ML VIAL IV PUSH PRN (22:30)
[2017-11-03] MEDS ORDERED: methylPREDNISolone SOD SUCC 125 MG/2 ML VIAL IV PUSH ONE (22:30)
[2017-11-03] MEDS ORDERED: ACETAMINOPHEN 325 MG TAB PO PRN (22:30)
[2017-11-03] MEDS: RESP: ALBUTEROL 2.5 MG/IPRATROPIUM 0.5 MG NEB (SCH) NEB ×2 (22:30→23:20)
[2017-11-03] MEDS ORDERED: CYCLOBENZAPRINE HCL 10 MG TAB PO ONE (22:30)
[2017-11-03] MEDS ORDERED: LACTULOSE SYRUP 20 GM/30 ML CUP PO ONE (22:30)
--- NOTE | 2017-11-03 22:37 | HHI.HP ---
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 Says his family members have been sick for weeks with couigh/congestion as are many of his friends. Also some family members have n/v symptoms. Yesterday he began with fever and cough/wheezing/congestion sx's. Also had frontal headache but no sinus drainage. did describe some sore throat but no n/v. In fact c/o constipation and even msk cp/abd pain with cough. In ED was noted to have sinus tach and given several liters of IVF. Pt had CTA chest and CT a/p all negative for any concerning abnormality. I was asked to admit the pt due to ongoing tachycardia and his overall ill appearance. Review of Systems Other cough/congestion sore throat headache constipation Past Family Social History Past Medical History remote pancreatitis related to etoh chronic lumbar spine pain hx spinal stenosis. L4,5,S1 decompressive laminectomy hx of right arthroscopic surgery htn leg swelling nephrolithiasis noncompliance with medications. Reported Medications norvasc.pt takes maybe 10mg once weekly flexeril..10mg says he takes usually 2 at a time 2 or 3 times per day. meloxicam 2-4 per day oxycodone 5mg on every other day prn lasix 20mg bid...uses when gets legs swelling. Allergies: Coded Allergies: butorphanol (Unverified Allergy, Severe, VOMITING, 06/10/17) ketorolac (Unverified Allergy, Severe, STOMACH PAIN., 06/10/17) nalbuphine (Unverified Allergy, Severe, SWELLING ABD PAIN AND VOMITING, TONGUE SWELLING, 06/10/17) pentazocine (Unverified Allergy, Severe, ABD PAIN AND VOMITING, 06/10/17) shrimp (Unverified Allergy, Severe, VOMITING, 06/10/17) Family History [place] Social History hx etoh abuse. quit 10-15 yrs ago hx tob use 2ppd x about 50yrs. quit 6 yrs ago. Physical Exam Vital Signs lying in bed appears sob neck supple heart reg/tachy lung slava exp wheeze abd s/nt ext no pitting edema Vital Signs Date Time Temp Pulse Resp B/P (MAP) Pulse Ox O2 Delivery O2 Flow Rate FiO2 11/03/17 22:18 112 20 167/89 (115) 99 Room Air 11/03/17 19:12 113 16 150/70 (96) 96 Room Air 11/03/17 18:11 98 11/03/17 16:53 100.4 124 22 160/126 (137) 97 Laboratory Laboratory Tests Test 11/03/17 19:05 White Blood Count 8.7 Red Blood Count 4.69 Hemoglobin 14.3 Hematocrit 41.9 Mean Corpuscular Volume 89.4 Mean Corpuscular Hemoglobin 30.6 Mean Corpuscular Hemoglobin Concent 34.2 Red Cell Distribution Width 13.8 Platelet Count 224 Mean Platelet Volume 8.2 Neutrophils (%) (Auto) 77.9 Lymphocytes (%) (Auto) 9.8 Monocytes (%) (Auto) 9.8 Eosinophils (%) (Auto) 2.1 Basophils (%) (Auto) 0.4 Neutrophils # (Auto) 6.8 Lymphocytes # (Auto) 0.9 Monocytes # (Auto) 0.9 Eosinophils # (Auto) 0.2 Basophils # (Auto) 0.0 CBC Comment DIFF FINAL Differential Comment Blood Urea Nitrogen 10 Creatinine 1.17 Random Glucose 97 Calcium Level 8.1 Sodium Level 138 Potassium Level 3.8 Chloride Level 105 Carbon Dioxide Level 28.4 Anion Gap 5 Estimat Glomerular Filtration Rate 77 Total Bilirubin 0.7 Direct Bilirubin 0.2 Indirect Bilirubin 0.5 Aspartate Amino Transf (AST/SGOT) 28 Alanine Aminotransferase (ALT/SGPT) 41 Alkaline Phosphatase 61 Total Protein 6.8 Albumin 3.4 Lipase 146 Date/Time Source Procedure Growth Status 11/03/17 19:05 Throat Group A Streptococcus Screen Pending Received Result Diagram: 11/03/17190411/03/171904 Caprini VTE Risk Assessment Caprini VTE Risk Assessment: No/Low Risk (score <= 1) Caprini Risk Assessment Model Point Value = 1 Point Value = 2 Point Value = 3 Point Value = 5 Age 41-60 Minor surgery BMI > 25 kg/m2 Swollen legs Varicose veins or History of unexplained or recurrent spontaneous Oral contraceptives or hormone replacement Sepsis (< 1 month) Serious lung disease, including pneumonia (< 1 month) Abnormal pulmonary function Acute myocardial infarction Congestive heart failure (< 1 month) History of inflammatory bowel disease Medical patient at bed rest Age 61-74 Arthroscopic surgery Major open surgery (> 45 min) Laparoscopic surgery (> 45 min) Malignancy Confined to bed (> 72 hours) Immobilizing plaster cast Central venous access Age >= 75 History of VTE Family history of VTE Factor V Leiden Prothrombin [id number] Lupus anticoagulant Anticardiolipin antibodies Elevated serum homocysteine Heparin-induced thrombocytopenia Other congenital or acquired thrombophilia Stroke (< 1 month) Elective arthroplasty Hip, pelvis, or leg fracture Acute spinal cord injury (< 1 month) Prophylaxis Regimen Total Risk Factor Score Risk Level Prophylaxis Regimen 0-1 Low Early ambulation 2 Moderate Order ONE of the following: *Sequential Compression Device (SCD) *Heparin 5000 units SQ BID 3-4 Higher Order ONE of the following medications: *Heparin 5000 units SQ TID *Enoxaparin/Lovenox 40 mg SQ daily (WT < 150 kg, CrCl > 30 mL/min) *Enoxaparin/Lovenox 30 mg SQ daily (WT < 150 kg, CrCl > 10-29 mL/min) *Enoxaparin/Lovenox 30 mg SQ BID (WT < 150 kg, CrCl > 30 mL/min) AND/OR *Sequential Compression Device (SCD) 5 or more Highest Order ONE of the following medications: *Heparin 5000 units SQ TID (Preferred with Epidurals) *Enoxaparin/Lovenox 40 mg SQ daily (WT < 150 kg, CrCl > 30 mL/min) *Enoxaparin/Lovenox 30 mg SQ daily (WT < 150 kg, CrCl > 10-29 mL/min) *Enoxaparin/Lovenox 30 mg SQ BID (WT < 150 kg, CrCl > 30 mL/min) AND *Sequential Compression Device (SCD) Assessment and Plan Problem List: (1) Respiratory distress ICD Codes: R06.03 - Acute respiratory distress Status: Acute Plan: 1.acute respiratory illness. appears to be infectious and could be viral or atypical bacterial bronchitis. pt with multiple friends/family members with similar sx's 2. chronic back pain. s/p L-S laminectomy for Spinal stenosis 3. hx htn and peripheral edema...noncompliant with medications plan nebs/steroids/abx overnight and reevaluate in AM given IVF per ED telemetry/echo monitor his bp and adjust meds as needed dvt prophylaxis PT eval in AM Hector Ackerman MD Nov 03, 2017 22:36
[2017-11-03] MEDS ORDERED: cloNIDine HCL 0.1 MG TAB PO PRN (22:45)
[2017-11-03 22:50] VITALS: TEMP 98.6
[2017-11-03 23:48] VITALS: BP 160/81; PULSE 118; RESP 18; TEMP 100.9; O2SAT 93
[2017-11-03] MEDS: LACTULOSE SYRUP 20 GM/30 ML CUP PO PRN (23:58)
[2017-11-04] VITALS (11 sets, daily range): BP systolic 120–138; BP diastolic 63–77; PULSE 102–121; RESP 18–20; TEMP 97.9–98.6; O2SAT 94–100
[2017-11-04] MEDS ORDERED: AZITHROMYCIN INJ 500 MG in SODIUM CHLOR 0.9% 250 ML INJ 250 ML IV SCH ×2
[2017-11-04] MEDS: RESP: ALBUTEROL 2.5 MG/IPRATROPIUM 0.5 MG NEB (SCH) NEB ×5 (03:14→20:03)
[2017-11-04] MEDS: CYCLOBENZAPRINE HCL 10 MG TAB PO SCH ×3 (06:15→22:12)
--- NOTE | 2017-11-04 08:25 | HHI.PR ---
Subjective Remarks Patient sitting up on edge of bed reports feeling, "a little better." Continues to have nonproductive cough with associated muscular pain SOB has improved Objective Vitals Vital Signs Date Time Temp Pulse Resp B/P (MAP) Pulse Ox O2 Delivery O2 Flow Rate FiO2 11/04/17 08:09 97.9 116 20 138/77 (97) 100 11/04/17 03:33 18 11/04/17 03:31 98.2 121 18 130/69 (89) 96 11/04/17 03:30 115 11/04/17 00:02 117 11/03/17 23:48 100.9 118 18 160/81 (107) 93 11/03/17 22:51 11/03/17 22:50 98.6 11/03/17 22:18 112 20 167/89 (115) 99 Room Air 11/03/17 19:12 113 16 150/70 (96) 96 Room Air 11/03/17 18:11 98 11/03/17 16:53 100.4 124 22 160/126 (137) 97 Result Diagram: 11/03/17 1905 11/03/17 190 Other Results Laboratory Tests Test 11/03/17 19:05 White Blood Count 8.7 TH/MM3 Red Blood Count 4.69 MIL/MM3 Hemoglobin 14.3 GM/DL Hematocrit 41.9 % Mean Corpuscular Volume 89.4 FL Mean Corpuscular Hemoglobin 30.6 PG Mean Corpuscular Hemoglobin Concent 34.2 % Red Cell Distribution Width 13.8 % Platelet Count 224 TH/MM3 Mean Platelet Volume 8.2 FL Neutrophils (%) (Auto) 77.9 % Lymphocytes (%) (Auto) 9.8 % Monocytes (%) (Auto) 9.8 % Eosinophils (%) (Auto) 2.1 % Basophils (%) (Auto) 0.4 % Neutrophils # (Auto) 6.8 TH/MM3 Lymphocytes # (Auto) 0.9 TH/MM3 Monocytes # (Auto) 0.9 TH/MM3 Eosinophils # (Auto) 0.2 TH/MM3 Basophils # (Auto) 0.0 TH/MM3 CBC Comment DIFF FINAL Differential Comment Blood Urea Nitrogen 10 MG/DL Creatinine 1.17 MG/DL Random Glucose 97 MG/DL Calcium Level 8.1 MG/DL Sodium Level 138 MEQ/L Potassium Level 3.8 MEQ/L Chloride Level 105 MEQ/L Carbon Dioxide Level 28.4 MEQ/L Anion Gap 5 MEQ/L Estimat Glomerular Filtration Rate 77 ML/MIN Total Bilirubin 0.7 MG/DL Direct Bilirubin 0.2 MG/DL Indirect Bilirubin 0.5 MG/DL Aspartate Amino Transf (AST/SGOT) 28 U/L Alanine Aminotransferase (ALT/SGPT) 41 U/L Alkaline Phosphatase 61 U/L B-Type Natriuretic Peptide 8 PG/ML Total Protein 6.8 GM/DL Albumin 3.4 GM/DL Lipase 146 U/L Imaging Last Impressions Chest X-Ray 11/03/17 1720 Signed Impressions: Service Date/Time: Friday, November 03, 2017 17:48 - CONCLUSION: 1. No acute cardiopulmonary disease. Oscar Edward MD CT Angiography 11/03/17 0000 Signed Impressions: Service Date/Time: Friday, November 03, 2017 20:57 - CONCLUSION: Normal examination. Anibal Link MD Abdomen/Pelvis CT 11/03/17 0000 Signed Impressions: Service Date/Time: Friday, November 03, 2017 20:57 - CONCLUSION: Normal examination except for few benign renal cysts. A few right sided renal calcifications. No evidence of hydronephrosis or obstruction. Anibal Link MD Objective Remarks GENERAL: This is a well-nourished, well-developed patient, in no apparent distress. CARDIOVASCULAR: Regular rate and rhythm RESPIRATORY: diminished through out with scatter expiratory wheezing GASTROINTESTINAL: Abdomen soft, non-tender, nondistended. Normal active bowel sounds MUSCULOSKELETAL: Extremities without clubbing, cyanosis, or edema. NEURO: Alert & Oriented x4 to person, place, time, situation. Moves all ext x4 A/P Problem List: (1) Respiratory distress ICD Codes: R06.03 - Acute respiratory distress Status: Acute Plan: 1.acute respiratory illness. appears to be infectious and could be viral or atypical bacterial bronchitis. pt with multiple friends/family members with similar sx's 2. chronic back pain. s/p L-S laminectomy for Spinal stenosis 3. hx htn and peripheral edema...noncompliant with medications plan continue nebs/steroids/abx abx not yet given awaiting BC given IVF per ED telemetry echo pending monitor his bp and adjust meds as needed dvt prophylaxis PT eval pending Assessment and Plan Patient examined. Assessment and plan formulated with Pema Aquino PA-C. I agree with the above. improved sob. still with ant chest pain with coughing. cont abx. f/u cx's cont steroid/nebs f/u echo. hopefully d/c tomorrow Pema Aquino Nov 04, 2017 08:25 Hector Ackerman MD Nov 04, 2017 14:57
[2017-11-04] MEDS ORDERED: methylPREDNISolone SOD SUCC 125 MG/2 ML VIAL IV PUSH SCH (09:00)
[2017-11-04 09:36] LABS: PHOSPHORUS 1.2 MG/DL (2.5-4.9)
[2017-11-04 09:59] LABS: BICARBONATE 22.8 MEQ/L (21.0-32.0); CALCIUM 8.1 MG/DL (8.5-10.1); CREATININE 1.24 MG/DL (0.60-1.30); MAGNESIUM 1.8 MG/DL (1.5-2.5)
[2017-11-04] MEDS: guaiFENesin/CODEINE SYRUP 200 MG/20 MG/10 ML CUP PO PRN (10:15)
[2017-11-04] MEDS: AZITHROMYCIN INJ 500 MG in SODIUM CHLOR 0.9% 250 ML INJ 250 ML IV SCH (10:20)
[2017-11-04] MEDS ORDERED: BENZOCAINE-MENTHOL (SUGAR FREE) 15 MG-3.6 MG LOZENGE BUCCAL ONE (13:45)
--- NOTE | 2017-11-04 15:12 | ECHRPT ---
Indication: cardiomyopathy CONCLUSIONS Normal left ventricular size. The left ventricular systolic function is hyperdynamic with an estimated ejection fraction in the ra nge of 65- 70%. Trace mitral valve regurgitation. There is trace tricuspid valve regurgitation. The estimated pulmonary arterial pressure is 33 mmHg. BP: / HR: Rhythm: MEASUREMENTS (Male / Female) Normal Values Technical Quality:Good 2D ECHO LV Diastolic Diameter PLAX 4.2 cm 4.2 - 5.9 / 3.9 - 5.3 cm LV Systolic Diameter PLAX 2.8 cm IVS Diastolic Thickness 1.5 cm 0.6 - 1.0 / 0.6 - 0.9 cm LVPW Diastolic Thickness 1.2 cm 0.6 - 1.0 / 0.6 - 0.9 cm LV Relative Wall Thickness 0.6 RV Internal Dim ED PLAX 2.6 cm M-MODE Aortic Root Diameter MM 3.0 cm LA Systolic Diameter MM 3.5 cm LA Ao Ratio MM 1.2 AV Cusp Separation MM 2.2 cm DOPPLER TR Peak Velocity 240.0 cm/s TR Peak Gradient 23.0 mmHg Right Atrial Pressure 10.0 mmHg Pulmonary Artery Systolic Pressu 33.0 mmHg Right Ventricular Systolic Press 33.0 mmHg FINDINGS LEFT VENTRICLE Normal left ventricular size. The left ventricular systolic function is hyperdynamic with an estimated ejection fraction in the ra nge of 65- 70%. RIGHT VENTRICLE Normal right ventricular size and systolic function. LEFT ATRIUM The left atrial size is normal. RIGHT ATRIUM The right atrial size is normal. ATRIAL SEPTUM Normal atrial septal thickness without atrial level shunting by limited color doppler interrogation. AORTA The aortic root and proximal ascending aorta are normal in size on limited imaging. MITRAL VALVE Structurally normal mitral valve. Trace mitral valve regurgitation. AORTIC VALVE Trileaflet aortic valve. No aortic valve stenosis or regurgitation. TRICUSPID VALVE Structurally normal tricuspid valve. There is trace tricuspid valve regurgitation. The estimated pulmonary arterial pressure is 33 mmHg. PULMONARY VALVE No pulmonary valve regurgitation or stenosis. VESSELS The inferior vena cava is normal in size. PERICARDIUM No pericardial effusion. Afshin Elkins MD, FACC, [facility] [place] (Electronically Signed) Final Date:04 November 2017 15:11
[2017-11-04] MEDS ORDERED: BENZOCAINE-MENTHOL (SUGAR FREE) 15 MG-3.6 MG LOZENGE BUCCAL PRN (16:00)
[2017-11-04] MEDS: methylPREDNISolone SOD SUCC 125 MG/2 ML VIAL IV PUSH SCH (17:15)
[2017-11-04] MEDS: POTASSIUM PHOSPHATE MONOBASIC 500 MG TAB PO SCH ×2 (18:05→22:12)
[2017-11-04] MEDS: LACTULOSE SYRUP 20 GM/30 ML CUP PO PRN (23:21)
[2017-11-05] VITALS: PULSE 106
[2017-11-05] MEDS: RESP: ALBUTEROL 2.5 MG/IPRATROPIUM 0.5 MG NEB (SCH) NEB ×4 (00:40→12:14)
[2017-11-05] MEDS: methylPREDNISolone SOD SUCC 125 MG/2 ML VIAL IV PUSH SCH ×2 (03:12→10:52)
[2017-11-05 03:31] VITALS: BP 126/66; PULSE 102; RESP 18; TEMP 98; O2SAT 96
[2017-11-05 04:45] VITALS: PULSE 92
[2017-11-05] MEDS: CYCLOBENZAPRINE HCL 10 MG TAB PO SCH (06:02)
[2017-11-05 08:00] VITALS: PULSE 106
[2017-11-05 08:05] VITALS: BP 134/78; PULSE 100; RESP 18; TEMP 98.1; O2SAT 95
[2017-11-05] MEDS: AZITHROMYCIN INJ 500 MG in SODIUM CHLOR 0.9% 250 ML INJ 250 ML IV SCH (08:34)
[2017-11-05] MEDS: guaiFENesin/CODEINE SYRUP 200 MG/20 MG/10 ML CUP PO PRN (08:34)
--- NOTE | 2017-11-05 11:56 | HHI.PR ---
Subjective Remarks want to go home feels much better ambulating to bathroom no problem Objective Vitals heart reg lung scattered exp wheezing abd s/nt ext no edema Vital Signs Date Time Temp Pulse Resp B/P (MAP) Pulse Ox O2 Delivery O2 Flow Rate FiO2 11/05/17 08:05 98.1 100 18 134/78 (96) 95 11/05/17 04:45 92 11/05/17 03:31 98.0 102 18 126/66 (86) 96 11/05/17 00:00 106 11/04/17 23:13 98.3 104 18 128/69 (88) 96 11/04/17 20:00 111 11/04/17 19:17 98.2 109 18 126/70 (88) 94 11/04/17 16:04 98.6 106 20 120/63 (82) 96 11/04/17 15:53 109 11/04/17 12:15 102 11/05/17 11/05/17 11/06/17 15:00 23:00 07:00 Intake Total 250 ml Balance 250 ml Intake IV Total 250 ml Result Diagram: 11/03/17 1905 11/04/17 0858 Imaging Last Impressions Chest X-Ray 11/03/17 1720 Signed Impressions: Service Date/Time: Friday, November 03, 2017 17:48 - CONCLUSION: 1. No acute cardiopulmonary disease. Oscar Edward MD CT Angiography 11/03/17 0000 Signed Impressions: Service Date/Time: Friday, November 03, 2017 20:57 - CONCLUSION: Normal examination. Anibal Link MD Abdomen/Pelvis CT 11/03/17 0000 Signed Impressions: Service Date/Time: Friday, November 03, 2017 20:57 - CONCLUSION: Normal examination except for few benign renal cysts. A few right sided renal calcifications. No evidence of hydronephrosis or obstruction. Anibal Link MD A/P Problem List: (1) Respiratory distress ICD Codes: R06.03 - Acute respiratory distress Status: Acute Plan: 1.acute respiratory illness. appears to be infectious and could be viral or atypical bacterial bronchitis. pt with multiple friends/family members with similar sx's 2. chronic back pain. s/p L-S laminectomy for Spinal stenosis 3. hx htn and peripheral edema...noncompliant with medications plan today pt finally coughing up some sputum feels much better. ambulating in ponce to bathroom..he asks to go home. continue nebs/steroids/abx and d/c with neb machine echo no chf f/u pcp d/c home. Hector Ackerman MD Nov 05, 2017 11:56
[2017-11-05] MEDS ORDERED: OXYC-392 PO (11:58)
[2017-11-05] MEDS ORDERED: AMLO10 PO (11:59)
[2017-11-05] MEDS ORDERED: MELO7.5T27 PO ×2 (11:59→12:04)
[2017-11-05] MEDS ORDERED: IPRA0.02 NEB (12:04)
[2017-11-05] MEDS ORDERED: AZIT250T3 PO (12:04)
[2017-11-05] MEDS ORDERED: PRED10 PO (12:04)
[2017-11-05] MEDS ORDERED: guaiFEN-COD 200-20 MG/10ML LIQ PO (12:04)
[2017-11-05] MEDS ORDERED: ALBU0.08 NEB (12:04)
[2017-11-05] MEDS ORDERED: NEBULIZER/ADULT1 KIT (12:06)
--- NOTE | 2017-11-05 12:13 | HHI.DCPOC ---
Discharge Care Plan Diagnosis: (1) Respiratory distress (2) Acute bronchitis Goals to Promote Your Health * To prevent worsening of your condition and complications * To maintain your health at the optimal level Directions to Meet Your Goals Take your medications as prescribed Follow your dietary instruction Follow activity as directed Keep your appointments as scheduled Take your immunizations and boosters as scheduled If your symptoms worsen call your PCP, if no PCP go to Urgent Care Center or Emergency Room Smoking is Dangerous to Your Health. Avoid second hand smoke Call the 24-hour hour crisis hotline for domestic abuse at Hector Ackerman MD Nov 05, 2017 12:13
== END 2017-11-05 14:13 | disposition home or self-care (01) ==
LOC: NEPD 16:52 → NEDA 21:51 → NEPHCDU 22:56
PROVIDERS: ADMIT Hospitalist; ATTEND Hospitalist
DX: R06.03 Acute respiratory distress (principal); J20.9 Acute bronchitis, unspecified; M48.061 Spinal stenosis, lumbar region without neurogenic claudication; G89.29 Other chronic pain; I10 Essential (primary) hypertension; K59.00 Constipation, unspecified; J06.9 Acute upper respiratory infection, unspecified; R10.13 Epigastric pain; R00.0 Tachycardia, unspecified; Q61.02 Congenital multiple renal cysts; E78.00 Pure hypercholesterolemia, unspecified; I25.2 Old myocardial infarction; K21.9 Gastro-esophageal reflux disease without esophagitis; F32.9 Major depressive disorder, single episode, unspecified; M19.90 Unspecified osteoarthritis, unspecified site; Z79.899 Other long term (current) drug therapy; Z87.891 Personal history of nicotine dependence; Z91.14 Patient's other noncompliance with medication regimen
CPT/HCPCS: 71046; 71275; 74177; 80048; 80076; 83690; 83735; 83880; 84100; 85025; 87040; 87081; 87449; 87804; 87880; 93306; 94640; 94664; 96361; 96365; 96375; 96376; 99285; G0378; J0456; J2930; J7030; J7050; Q9967

== ENCOUNTER 2018-03-10 01:33 | Emergency (ER) | payer OTHER ==
[~2018-03-10 01:33] MED LIST changes: +ALBU0.08 NEB; +AMLO10 PO; +AZIT250T3 PO; -HYDR-3580 PO; -HYDR25TA5 PO; +IPRA0.02 NEB; +MELO7.5T27 PO; +NEBULIZER/ADULT1 KIT; +PRED10 PO; -ROBA500T PO; -ZOFR4TAB3 SL; +guaiFEN-COD 200-20 MG/10ML LIQ PO
[2018-03-10 01:36] VITALS: BP 172/99; PULSE 90; RESP 18; TEMP 99.3; O2SAT 98
--- NOTE | 2018-03-10 02:51 | PD ---
HPI Chief Complaint: Injury Time Seen by Provider: 02:15 Travel History International Travel<30 days: No Contact w/Intl Traveler<30days: No Traveled to known affect area: No History of Present Illness HPI 57-year-old black male presents emergency department with complaints of right knee and right ankle pain after a fall 1 week ago last Friday. The patient states that he tripped on his porch falling off onto his right knee. He had twisted his right ankle as well. The patient has been treating himself symptomatically at home. He states that he had to go to a graduation last week and had plane tickets to go out of the [facility]. He opted to go out of [facility] for the graduation and just got back in the town this evening. The patient states that he did have some pain in his lower back into his right leg but he has had back problems in the past. He has noted some increased swelling in his right ankle since the fall. The patient has been ambulatory since the fall. He does report having increasing pain in his foot and ankle now over the last few days. He denies injury to his head, neck or upper back. He states the pain is moderate. He takes muscle relaxers and oxycodone for chronic pain. He has not been seen anywhere for his injury as of yet. No focal weakness or sensory change. No acute bowel or bladder changes. No chest pain or shortness of breath. No palpitations. History Past Medical Histgory Narrative Medical Chronic back pain Hx Cancer: No Hx Chemotherapy: No Hx Radiation Therapy: No Past Surgical History Narrative Surgical Lumbar laminectomy Social History Alcohol Use: Yes (quit 2002) Tobacco Use: No (quit 2002) Allergies-Medications (Allergen,Severity, Reaction): Coded Allergies: butorphanol (Unverified Allergy, Severe, VOMITING, 03/10/18) ketorolac (Unverified Allergy, Severe, STOMACH PAIN., 03/10/18) nalbuphine (Unverified Allergy, Severe, SWELLING ABD PAIN AND VOMITING, TONGUE SWELLING, 03/10/18) pentazocine (Unverified Allergy, Severe, ABD PAIN AND VOMITING, 03/10/18) shrimp (Unverified Allergy, Severe, VOMITING, 03/10/18) Reported Meds & Prescriptions Reported Meds & Active Scripts Active Nebulizer/Adult Mask (N/A) 1 Kit Kit Kit .ROUTE DIRECTED [guaiFEN-COD 200-20 MG/10ML LIQ] 10 ML Syrp 10 Ml PO Q4H PRN 7 Days Ipratropium Neb (Ipratropium [place]) 0.5 Mg/2.5 Ml Amp 0.5 Mg NEB Q6HR NEB Albuterol Neb (Albuterol Sulfate) 2.5 Mg/3 Ml Neb 2.5 Mg NEB Q6HR While awake Azithromycin 250 Mg Tab 250 Mg PO DIRECTED Take 2 tabs (500 mg) on day 1 then 1 tab daily x 4 days. Prednisone 10 Mg Tab 10 Mg PO DIRECTED 10 Days 30mg po bid x 2 days,20mg po bid x 2 days, 10mg po bid x 3 days, 10mg po daily x 3 days Meloxicam 7.5 Mg Tab 7.5 Mg PO DAILY PRN Oxycodone (Oxycodone HCl) 5 Mg Tab 5 Mg PO Q8H PRN Flomax (Tamsulosin HCl) 0.4 Mg Cap 0.4 Mg PO HS Reported Norvasc (Amlodipine Besylate) 10 Mg Tab 10 Mg PO DAILY Flexeril (Cyclobenzaprine HCl) 10 Mg Tab 10 Mg PO BID Review of Systems Except as stated in HPI: all other systems reviewed are Neg Physical Exam Narrative GENERAL: Well-developed, well-nourished in no apparent distress. Nontoxic appearing. HEAD: Normocephalic, atraumatic. EYES: Pupils equal round and reactive. Extraocular motions intact. No scleral icterus. No injection or drainage. ENT: Nose clear. Throat without erythema, tonsillar hypertrophy or exudate. Uvula midline. Airway patent. NECK: Trachea midline. Supple, nontender, moves head freely. No central bony tenderness or spasm. CARDIOVASCULAR: Regular rate and rhythm without murmurs, gallops, or rubs. RESPIRATORY: Clear to auscultation. Breath sounds equal bilaterally. No wheezes , rales, or rhonchi. GASTROINTESTINAL: Abdomen soft, non-tender, nondistended. No hepato-splenomegaly , or palpable masses. No guarding. EXTREMITIES: Upper extremities unremarkable. The left lower extremity is unremarkable. The right lower extremity reveals an abrasion over the patella region. There is mild swelling in the knee. There is mild to moderate swelling in the ankle into the foot. No pain in the hip. No pain in the thigh or calf. He has intact sensation with good distal pulses. He complains of pain with movement of the knee. No anterior posterior drawer. No lateral or medial instability. The right ankle reveals diffuse tenderness into the foot. No pain in the heel or forefoot. He has intact gross sensation. Good cap refill. The skin is intact in the foot. There is no signs of any wound infection. BACK: No central bony tenderness to palpation of the dorsal lumbar spine. Patient complains of lateral paralumbar tenderness without deformity. No flank tenderness. Sits up in bed at 90. No saddle anesthesia. NEUROLOGICAL: Awake, alert and oriented x 3 .Cranial nerves grossly intact. Motor and sensory grossly within normal limits. Normal speech. Data Data Last Documented VS Vital Signs Date Time Temp Pulse Resp B/P (MAP) Pulse Ox O2 Delivery O2 Flow Rate FiO2 03/10/18 01:36 99.3 90 18 172/99 (123) 98 MDM Medical Screen Exam Complete: Yes Emergency Medical Condition: No Differential Diagnosis MDM: High Differential diagnoses: Fracture, sprain, strain, dislocation, contusion, neurovascular injury Narrative Course This is a 57-year-old black male who fell onto his knee a week and half ago. He just got into town in the past 1-2 hours. He came nearly directly to the ER. He has not been seen prior to this. He was not seen emergency department when he was visiting out of state. A medical screening exam was performed: At the time of evaluation the presenting medical condition was determined not to be of an emergent nature. The patient was given the option of receiving additional care, but declined. Patient was given options for additional community resources from which to obtain care. The Patient Has Been advised to seek medical attention for their presenting complaint. The patient has been advised to return to the ER at any time if an emergent condition develops. Primary Impression: Encounter for medical screening examination Condition: Stable Jos Jennings March 10, 2018 02:51
== END 2018-03-10 03:10 | disposition left against medical advice (07) ==
LOC: NEPD 01:33
DX: M25.571 Pain in right ankle and joints of right foot (principal)
CPT/HCPCS: 99281